=== PATIENT | female | born 1945 | race Two or more races ===

== ENCOUNTER 2017-01-04 09:34 | Outpatient (CLI) | payer MEDICARE ==
[~2017-01-04 09:34] MED LIST: ALIGN4 M1 PO; CELEBREX200 MG ORAL; IBUPROFEN200 MG ORAL; LINZESS145 MCG PO; PREVACID30 MG ORAL; muscle relaxant PO
[2017-01-04 12:43] LABS: BASOPHILS % (AUTO) 1.1 % (0.0-2.0); EOSINOPHILS % (AUTO) 0.2 % (0.0-3.0); LYMPHOCYTES % (AUTO) 19.6 % (20.0-45.0); MEAN CORPUSCULAR HEMOGLOBIN 29.9 PG (27.0-31.0); MEAN CORPUSCULAR HGB CONC 33.5 G/DL (32.0-36.0); MEAN CORPUSCULAR VOLUME 89 FL (80-99); MEAN PLATELET VOLUME 6.6 FL (6.5-10.1); NEUTROPHILS % (AUTO) 69.1 % (45.0-75.0); PLATELET COUNT 241 K/UL (150-450); RED BLOOD COUNT 4.71 M/UL (4.20-5.40); RED CELL DISTRIBUTION WIDTH 11.7 % (11.6-14.8); WHITE BLOOD COUNT 5.9 K/UL (4.8-10.8)
[2017-01-04 12:44] LABS: ALANINE AMINOTRANSFERASE 16 U/L (3-33); ALBUMIN/GLOBULIN RATIO 1.4 (1.0-2.7); AMYLASE 31 U/L (10-110); ANION GAP 15 (5-15); ASPARTATE AMINO TRANSFERASE 23 U/L (5-40); CALCIUM 9.3 mg/dL (8.6-10.2); CARBON DIOXIDE 25 mEQ/L (20-30); CHLORIDE 94 mEQ/L (98-107); CREATININE 0.8 mg/dL (0.5-0.9); HEMOLYSIS 13; LIPASE 21 U/L (< 60); POTASSIUM 4.1 mEQ/L (3.4-4.9); SODIUM 134 mEQ/L (135-145); TOTAL PROTEIN 7.1 g/dL (6.6-8.7)
--- NOTE | 2017-01-04 17:59 | GI Progress Note ---
Assessment/Plan Problems: (1) Abdominal bloating ICD Codes: R14.0 - Abdominal distension (gaseous) SNOMED: 124650007 (2) GERD (gastroesophageal reflux disease) ICD Codes: K21.9 - GERD (gastroesophageal reflux disease) SNOMED: 984749215 (3) Constipation ICD Codes: K59.00 - Constipation SNOMED: 10907282 Status: stable Status Narrative Seen with Dr. Traore. Assessment/Plan ordered BT @ [facility] lab draws: CBC, CMP, amylase/lipase, thyroid panel will consider Amitiza vs trulance on next visit RTC after BT repeat colonoscopy x 5 years Subjective Subjective LUQ abdominal pain constipation, linzess does not work weight increase abdominal gas s/p EGD in 2014, next scheduled for 2019 Objective T 98.7 BP 134/73 P 63 96 RA Laboratory Tests Test 01/04/17 11:00 White Blood Count 5.9 K/UL (4.8-10.8) Red Blood Count 4.71 M/UL (4.20-5.40) Hemoglobin 14.1 G/DL (12.0-16.0) Hematocrit 42.1 % (37.0-47.0) Mean Corpuscular Volume 89 FL (80-99) Mean Corpuscular Hemoglobin 29.9 PG (27.0-31.0) Mean Corpuscular Hemoglobin Concent 33.5 G/DL (32.0-36.0) Red Cell Distribution Width 11.7 % (11.6-14.8) Platelet Count 241 K/UL (150-450) Mean Platelet Volume 6.6 FL (6.5-10.1) Neutrophils (%) (Auto) 69.1 % (45.0-75.0) Lymphocytes (%) (Auto) 19.6 % (20.0-45.0) L Monocytes (%) (Auto) 10.0 % (1.0-10.0) Eosinophils (%) (Auto) 0.2 % (0.0-3.0) Basophils (%) (Auto) 1.1 % (0.0-2.0) Sodium Level 134 mEQ/L (135-145) L Potassium Level 4.1 mEQ/L (3.4-4.9) Chloride Level 94 mEQ/L (98-107) L Carbon Dioxide Level 25 mEQ/L (20-30) Anion Gap 15 (5-15) Blood Urea Nitrogen 11 mg/dL (7-23) Creatinine 0.8 mg/dL (0.5-0.9) Estimat Glomerular Filtration Rate mL/min (>60) Glucose Level 107 mg/dL (74-106) H Calcium Level 9.3 mg/dL (8.6-10.2) Total Bilirubin 0.4 mg/dL (0.0-1.2) Aspartate Amino Transf (AST/SGOT) 23 U/L (5-40) Alanine Aminotransferase (ALT/SGPT) 16 U/L (3-33) Alkaline Phosphatase 57 U/L (35-104) Total Protein 7.1 g/dL (6.6-8.7) Albumin 4.2 g/dL (3.5-5.2) Globulin 2.9 g/dL Albumin/Globulin Ratio 1.4 (1.0-2.7) Amylase Level 31 U/L (10-110) Lipase 21 U/L (< 60) Thyroid Stimulating Hormone (TSH) 1.760 uIU/mL (0.300-4.500) Free Thyroxine 1.31 ng/dL (0.86-1.85) Free Triiodothyronine Pending Total Triiodothyronine 1.02 ng/mL (0.80-2.00) Triiodothyronine (T3) Uptake Pending General Appearance: no apparent distress, alert Cardiovascular: normal rate Respiratory/Chest: normal breath sounds, no respiratory distress Abdominal Exam: normal bowel sounds, non tender, soft Extremities: normal range of motion Divya Redmond N.P. Jan 04, 2017 17:59
== END 2017-01-04 10:15 | disposition home or self-care (01) ==
LOC: PAN 09:34
DX: K21.9 Gastro-esophageal reflux disease without esophagitis (principal); K59.00 Constipation, unspecified; R14.0 Abdominal distension (gaseous)
CPT/HCPCS: 36415; 80053; 82150; 83690; 84439; 84443; 84480; 84481; 85025; G0463; 99211

== ENCOUNTER 2018-01-24 09:16 | Outpatient (CLI) | payer MEDICARE ==
[2018-01-24 09:59] VITALS: BP 125/63
--- NOTE | 2018-01-24 10:06 | GI Progress Note ---
Assessment/Plan Problems: (1) GERD (gastroesophageal reflux disease) ICD Codes: K21.9 - GERD (gastroesophageal reflux disease) SNOMED: 269728810 (2) Abdominal bloating ICD Codes: R14.0 - Abdominal distension (gaseous) SNOMED: 375011407 (3) Constipation ICD Codes: K59.00 - Constipation SNOMED: 95098413 (4) Internal hemorrhoids ICD Codes: K64.8 - Internal hemorrhoids SNOMED: 40959883 Status: stable Status Narrative Seen with Dr. Traore. Assessment/Plan ordered abdominal U/S Cont Dexilant 60mg Trial Trulance RTC after imaging study The patient was seen and examined at bedside and all new and available data was reviewed in the patients chart. I agree with the above findings, impression and plan. (Patient seen earlier today. Signature stamp does not reflect patient encounter time.). - Elias Traore MD Subjective Subjective Abdominal Pain >> LUQ/LLQ GERD Digestion problems Objective Last 24 Hour Vital Signs Date Time Temp Pulse Resp B/P (MAP) Pulse Ox O2 Delivery O2 Flow Rate FiO2 01/24/18 09:59 98.0 58 125/63 97 98.0 General Appearance: WD/WN, no apparent distress, alert Cardiovascular: normal rate Respiratory/Chest: normal breath sounds, no respiratory distress Abdominal Exam: normal bowel sounds, non tender, soft Extremities: normal range of motion, non-tender Estuardo Redmond NP Jan 24, 2018 10:06
== END 2018-01-24 09:48 | disposition home or self-care (01) ==
LOC: PAN 09:16
DX: K21.9 Gastro-esophageal reflux disease without esophagitis (principal); R14.0 Abdominal distension (gaseous); K59.00 Constipation, unspecified; K64.8 Other hemorrhoids
CPT/HCPCS: 99212

== ENCOUNTER → 2018-03-01 | Outpatient (CLI) | payer MEDICARE, OTHER ==
--- NOTE | 2018-03-01 13:27 | Diagnostic Imaging Report ---
Indication: Abdominal pain Technique: A plantar grayscale and color Doppler imaging of the abdomen Comparison: None Findings: Imaged portions of the pancreatic head grossly unremarkable. The body and tail are not seen. Liver contour appears smooth. There is mild diffusely increased hepatic echogenicity. A subcentimeter anechoic well-circumscribed structure in the left hepatic lobe compatible with a simple cyst is noted. The liver is normal in size. Imaged hepatic veins are patent. The main portal vein is patent with normal direction of flow. A prominent junctional fold is noted within the gallbladder, normal anatomic variant. No appreciable gallstones or sludge. No gallbladder wall thickening or pericholecystic fluid. Sonographic Hooper sign reported as negative. No intrahepatic or extrahepatic biliary ductal dilatation. The common bile duct measures 4-5 mm. The right kidney measures 10.7 cm in length. The left kidney measures 10.8 cm in length. Both kidneys demonstrate normal echogenicity. Some punctate echogenic foci in the renal river bilaterally may represent vascular calcifications or prominent renal sinus fat. There is no hydronephrosis or sonographically appreciable renal stone bilaterally. The spleen is normal in size and appearance. Imaged portions of the abdominal aorta and iliac arteries are normal in outer. There is no ascites. IMPRESSION: Mildly increased hepatic echogenicity most commonly reflective of hepatic steatosis. Additional hepatocellular diseases should be excluded clinically. Subcentimeter anechoic simple appearing hepatic cyst. No cholelithiasis or sonographic evidence to suggest acute cholecystitis.
== END | disposition home or self-care (01) ==
LOC: ULS 09:42
DX: R10.9 Unspecified abdominal pain (principal)
CPT/HCPCS: 76700

== ENCOUNTER 2018-03-21 09:44 | Outpatient (CLI) | payer OTHER ==
[2018-03-21 10:05] VITALS: BP 131/64
[2018-03-21] MEDS ORDERED: MELATONIN3 MG ORAL (10:05)
[2018-03-21] MEDS ORDERED: GABAPENTIN300 MG ORAL (10:05)
[2018-03-21] MEDS ORDERED: NEXIUM40 MG ORAL (10:05)
[2018-03-21] MEDS ORDERED: NEXIUM40 M2 ORAL (10:05)
--- NOTE | 2018-03-21 10:20 | GI Progress Note ---
Assessment/Plan Problems: (1) Encounter for diagnostic endoscopy ICD Codes: Z01.818 - Encounter for other preprocedural examination SNOMED: 899949570, 336842005 (2) GERD (gastroesophageal reflux disease) ICD Codes: K21.9 - GERD (gastroesophageal reflux disease) SNOMED: 682523800 (3) Abdominal bloating ICD Codes: R14.0 - Abdominal distension (gaseous) SNOMED: 447854704 (4) Constipation ICD Codes: K59.00 - Constipation SNOMED: 71637454 Status: stable Status Narrative Discussed with Dr. Traore. Assessment/Plan FHx of Pancreatic CA abdominal pain weight loss does not want radiation for CA EUS to be scheduled pending prior authorization. - NPO @ MI day prior procedure explained. cont PPI rx miralax + amitiza The patient was seen and examined at bedside and all new and available data was reviewed in the patients chart. I agree with the above findings, impression and plan. (Patient seen earlier today. Signature stamp does not reflect patient encounter time.). - Elias Traore MD Subjective Gastrointestinal/Abdominal: Reports: abdominal pain Subjective GERD >> given dexilant 60mg, but not taking because of high co pay Constipation >> Trulance Dizziness Objective Last 24 Hour Vital Signs Date Time Temp Pulse Resp B/P (MAP) Pulse Ox O2 Delivery O2 Flow Rate FiO2 03/21/18 10:05 98.4 62 18 131/64 98 98.4 General Appearance: WD/WN, no apparent distress, alert Cardiovascular: normal rate Respiratory/Chest: normal breath sounds, no respiratory distress Abdominal Exam: normal bowel sounds, non tender, soft Extremities: normal range of motion, non-tender Estuardo Redmond [employer] Mar 21, 2018 10:20
== END 2018-03-21 10:14 | disposition home or self-care (01) ==
LOC: PAN 09:44
DX: Z01.818 Encounter for other preprocedural examination (principal); K21.9 Gastro-esophageal reflux disease without esophagitis; R14.0 Abdominal distension (gaseous); K59.00 Constipation, unspecified
CPT/HCPCS: 99212

== ENCOUNTER 2018-04-28 07:11 | Day surgery (SDC) | payer MEDICARE, OTHER ==
[2018-04-28] VITALS (8 sets, daily range): BP systolic 132–155; BP diastolic 59–89
[~2018-04-28] VITALS: Ht 165.1 cm; Wt 77.1 kg
--- NOTE | 2018-04-28 06:48 | Anethesia Preoperative Eval ---
Anesthesia Pre-op PMH/ROS General Date of Evaluation: Apr 28, 2018 Time of Evaluation: 06:45 Anesthesiologist: qasim ASA Score: ASA 3 Mallampati Score Class I : Soft palate, uvula, fauces, pillars visible Class II: Soft palate, uvula, fauces visible Class III: Soft palate, base of uvula visible Class IV: Only hard plate visible Mallampati Classification: Class II Surgeon: siomara Diagnosis: abdominal pain Surgical Procedure: eus w/fna Anesthesia History: none Social History: smoking - nonsmoker Family History: no anesthesia problems Allergies: Coded Allergies: SULFA (SULFONAMIDE ANTIBIOTICS) (Verified Allergy, Severe, 01/02/15) fever, shaking Medications: see eMAR Past Medical History Gastrointestinal/Genitourinary: Reports: GERD, other - esophagitis Hematology/Immune: Reports: other - breast cancer Anesthesia Pre-op Phys. Exam Physician Exam Last Vital Signs Date Time Temp Pulse Resp B/P (MAP) Pulse Ox O2 Delivery O2 Flow Rate FiO2 10/5/18 07:45 97 60 18 155/82 97 Room Air 97.0 Constitutional: NAD Neurologic: CN 2-12 intact Cardiovascular: RRR Respiratory: CTA Gastrointestinal: S/NT/ND Airway Exam Mallampati Score: Class II MO: limited Neck: flexible TMD: 2fb ROM: limited Anesthesia Pre-op A/P Studies Pre-op Studies: EKG - sinus bradycardia Risk Assessment & Plan Assessment: asa3 Plan: mac Status Change Before Surgery: No Pre-Antibiotics Drug: Ana Dorado MD Apr 28, 2018 06:48
[~2018-04-28 07:11] MED LIST changes: +Atropine Inj 1mg/10ml Syr IV PRN; +DiphenhydrAMINE 50mg/ml Inj IVP PRN; +GABAPENTIN300 MG ORAL; +MELATONIN3 MG ORAL; +Midazolam 2mg/2ml Inj IVP PRN; +NEXIUM40 M2 ORAL; +NEXIUM40 MG ORAL; +fentaNYL 100 mcg/2 mL IV PRN
--- NOTE | 2018-04-28 08:51 | Short Stay Surgery H&P ---
History of Present Illness History of Present Illness Chief Complaint see recent office note HPI Duglas Moore is a 72 year old female who was admitted on for Abdominal Pain Patient History Allergies: Coded Allergies: SULFA (SULFONAMIDE ANTIBIOTICS) (Verified Allergy, Severe, 01/02/15) fever, shaking Medication History Scheduled Esomeprazole Magnesium (Nexium), 40 MG ORAL DAILY, (Reported) Esomeprazole Magnesium (Nexium), 40 MG ORAL PRN, (Reported) Gabapentin* (Gabapentin*), 300 MG ORAL BEDTIME, (Reported) Ibuprofen (Ibuprofen*), 800 MG ORAL Q12HR, (Reported) Scheduled PRN Melatonin (Melatonin), Unknown Dose ORAL BEDTIME PRN for Insomnia, (Reported) Physical Exam Vital Signs Last Vital Signs Date Time Temp Pulse Resp B/P (MAP) Pulse Ox O2 Delivery O2 Flow Rate FiO2 04/28/18 07:45 97 60 18 155/82 97 Room Air 97.0 Plan Attestation Are the patient's medical conditions optimized for surgery? Elias Traore MD Apr 28, 2018 08:51
--- NOTE | 2018-04-28 08:51 | Pre-Procedure Note/Attestation ---
Pre-Procedure Note/Attestation Complete Prior to Procedure Planned Procedure: not applicable Procedure Narrative: eus Indications for Procedure Pre-Operative Diagnosis: wt loss Attestation I attest that I discussed the nature of the procedure; its benefits; risks and complications; and alternatives (and the risks and benefits of such alternatives ), prior to the procedure, with the patient (or the patient's legal inside sales account representative). I attest that, if there was a reasonable possibility of needing a blood transfusion, the patient (or the patient's legal inside sales account representative) was given the [facility] of Health Services standardized written summary, pursuant to the [place] Blood Safety Act ([place] Health and Safety Code # 1645, as amended). I attest that I re-evaluated the patient just prior to the surgery and that there has been no change in the patient's H&P, except as documented below: Elias Traore MD Apr 28, 2018 08:51
[2018-04-28] MEDS ORDERED: Lidocaine 1% MPF 10mg/ml 5ml ONE (09:00)
[2018-04-28] MEDS ORDERED: Propofol 200mg/20ml IV ONE (09:00)
[2018-04-28] MEDS ORDERED: Heplock Flush 100 units/ml 3 ml syr ONE (09:04)
--- NOTE | 2018-04-28 09:30 | Endoscopy Procedure Note ---
Endoscopy Procedure Note General Indication for Procedure: weight loss Procedures Performed: other - EUS Operative Findings/Diagnosis: gallstones Specimen: none Pt Tolerated Procedure Well: Yes Estimated Blood Loss: none Anesthesia Anesthesiologist: kelvin Anesthesia: MAC Inserted Devices Implant(s) used?: No GI Core Measures 50 yrs or older w/o bx or poly: Not Applicable 10yrs. F/U not recommended: Not Applicable Elias Traore MD Apr 28, 2018 09:30
--- NOTE | 2018-04-28 09:50 | Immediate Post-Op Evaluation ---
Immediate Post-Op Evalulation Immediate Post-Op Evalulation Procedure: eus Date of Evaluation: Apr 28, 2018 Time of Evaluation: 09:47 IV Fluids: 200ml 0.9ns Blood Products: none Estimated Blood Loss: negligible Blood Pressure Systolic: 139 Blood Pressure Diastolic: 64 Pulse Rate: 59 Respiratory Rate: 18 O2 Sat by Pulse Oximetry: 100 Temperature (Fahrenheit): 97.7 Pain Score (1-10): 0 Nausea: No Vomiting: No Complications none Patient Status: awake, reacts, patent Drug: Ana Dorado MD Apr 28, 2018 09:50
--- NOTE | 2018-04-28 09:52 | 48 Hour Post Anesthesia Eval ---
Post Anesthesia Evaluation Procedure: eus Date of Evaluation: Apr 28, 2018 Time of Evaluation: 09:49 Blood Pressure Systolic: 135 0: 66 Pulse Rate: 60 Respiratory Rate: 18 Temperature (Fahrenheit): 97.7 O2 Sat by Pulse Oximetry: 99 Airway: patent Nausea: No Vomiting: No Pain Intensity: 0 Hydration Status: adequate Cardiopulmonary Status: stable Mental Status/LOC: patient returned to baseline Post-Anesthesia Complications: none Follow-up care needed: N/A Ana Isidro MD Apr 28, 2018 09:52
--- NOTE | 2018-04-28 16:00 | Procedure Note ---
DATE OF PROCEDURE: 04/28/2018 SURGEON: Elias Traore M.D. ANESTHESIOLOGIST: Dr. Bryant PROCEDURE: Endoscopic ultrasound. INDICATION: Weight loss, rule out pancreatic malignancy given family history of pancreatic cancer. The procedure, risks, benefits, and possible consequences, including hemorrhage, aspiration, perforation and infection, and alternative treatments, were explained to the patient/legal guardian by Dr. Elias Traore and the patient/legal guardian understood and accepted these risks. DESCRIPTION OF PROCEDURE: After informed consent was obtained and the patient was adequately sedated, Olympus EUS scope was advanced from mouth into the second portion of duodenum and pancreatic parenchyma was carefully examined through the gastroduodenal mucosa. Starting scanning at GE junction, we saw the left adrenal gland without any obvious adenoma. Celiac axis area was examined. There was no evidence of obvious celiac axis lymphadenopathy. Pancreatic parenchyma grossly within normal limit. In the body and tail, there was no evidence of any pancreatic duct dilatation. Then, the scope was advanced into the antrum, duodenal bulb, second portion of duodenum where the pancreatic head and gallbladder and liver were examined. Gallbladder showed evidence of about a little bit larger than 1 cm stone in the gallbladder. No gallbladder wall thickening. No pericholecystic fluid. Pancreatic head grossly within normal limit. Ampulla was seen. Both pancreatic duct and common bile duct was examined, none of them were dilated. The common bile duct measured roughly in the maximum diameter to about 4 mm. The patient tolerated procedure very well without any complication. SUMMARY OF FINDINGS: 1. 1 cm stone in the gallbladder, otherwise normal upper EUS examination. RECOMMENDATIONS: 1. Surgical evaluation for gallstones if the patient has signs and symptoms of gallstone disease, which at this time . 2. The patient to follow up in the office for further workup of her weight loss. I want to thank, Dr. Thang Pal, for this kind referral. Elias Traore M.D. DR: Soumya JOB#: [id number] CC: Thang Pal M.D.; Fax#: [phone]
== END 2018-04-28 10:30 | disposition home or self-care (01) ==
LOC: GAS 07:11
DX: R63.4 Abnormal weight loss (principal); K80.20 Calculus of gallbladder without cholecystitis without obstruction; K21.9 Gastro-esophageal reflux disease without esophagitis; Z85.3 Personal history of malignant neoplasm of breast; Z80.0 Family history of malignant neoplasm of digestive organs; Z88.2 Allergy status to sulfonamides
CPT/HCPCS: 43237; 93005; J2704; 94003; 94150

== ENCOUNTER 2018-05-15 14:16 | Outpatient (CLI) | payer MEDICARE ==
[~2018-05-15 14:16] MED LIST changes: -Atropine Inj 1mg/10ml Syr IV PRN; -DiphenhydrAMINE 50mg/ml Inj IVP PRN; -Midazolam 2mg/2ml Inj IVP PRN; -fentaNYL 100 mcg/2 mL IV PRN
[2018-05-15 14:25] VITALS: BP 133/64
[2018-05-15] MEDS ORDERED: TRULANCE PO (14:54)
--- NOTE | 2018-05-15 15:33 | GI Progress Note ---
Assessment/Plan Problems: (1) Encounter for diagnostic endoscopy ICD Codes: Z01.818 - Encounter for other preprocedural examination SNOMED: 489493057, 002939529 (2) Constipation ICD Codes: K59.00 - Constipation SNOMED: 70190282 (3) Abdominal bloating ICD Codes: R14.0 - Abdominal distension (gaseous) SNOMED: 518396624 (4) GERD (gastroesophageal reflux disease) ICD Codes: K21.9 - GERD (gastroesophageal reflux disease) SNOMED: 310160314 Status: stable Status Narrative Discussed with Dr. Troare. Assessment/Plan SUMMARY OF FINDINGS reviewed with patient: 1. 1 cm stone in the gallbladder, otherwise normal upper EUS examination. RECOMMENDATIONS: Surgical evaluation for gallstones if the patient has signs and symptoms of gallstone disease. cont dexilant RTC x3 months for routine follow up/management The patient was seen and examined at bedside and all new and available data was reviewed in the patients chart. I agree with the above findings, impression and plan. (Patient seen earlier today. Signature stamp does not reflect patient encounter time.). - Elias Traore MD Subjective Subjective GERD, taking dexilant had chronic constipation, but now resolved with diet and lifestyle changes Objective T 98.4 BP 133/64 P 73 98 RA General Appearance: WD/WN, no apparent distress, alert Cardiovascular: normal rate Respiratory/Chest: normal breath sounds, no respiratory distress Abdominal Exam: normal bowel sounds, non tender, soft Extremities: normal range of motion, non-tender Estuardo Redmond [employer] QUALITY CONSULTANT May 15, 2018 15:33
== END 2018-05-15 14:46 | disposition home or self-care (01) ==
LOC: PAN 14:16
DX: Z01.818 Encounter for other preprocedural examination (principal); K59.00 Constipation, unspecified; R14.0 Abdominal distension (gaseous); K21.9 Gastro-esophageal reflux disease without esophagitis; K80.20 Calculus of gallbladder without cholecystitis without obstruction
CPT/HCPCS: 99212

== ENCOUNTER 2019-01-30 09:36 | Outpatient (CLI) | payer MEDICARE ==
[~2019-01-30 09:36] MED LIST changes: +TRULANCE PO
--- NOTE | 2019-01-30 10:09 | General Progress Note ---
Assessment/Plan Problem List: (1) RLQ abdominal pain ICD Codes: R10.31 - Right lower quadrant pain SNOMED: 836663334 (2) GERD (gastroesophageal reflux disease) ICD Codes: K21.9 - GERD (gastroesophageal reflux disease) SNOMED: 624017297 (3) Abdominal bloating ICD Codes: R14.0 - Abdominal distension (gaseous) SNOMED: 459462899 (4) Constipation ICD Codes: K59.00 - Constipation SNOMED: 60739982 (5) Internal hemorrhoids ICD Codes: K64.8 - Internal hemorrhoids SNOMED: 65758703 (6) Breast cancer ICD Codes: C50.919 - Breast cancer SNOMED: 411388629 Assessment/Plan: patient to see her [employer] for pelvic us>> if neg plan CT of abd and pelvic last colon in 2014 EUS>>> ? gallstones Subjective ROS Limited/Unobtainable: Yes Allergies: Coded Allergies: SULFA (SULFONAMIDE ANTIBIOTICS) (Verified Allergy, Severe, 01/02/15) fever, shaking Objective General Appearance: alert EENT: normal ENT inspection Neck: supple Cardiovascular: normal rate Respiratory/Chest: lungs clear Abdomen: soft, tender Extremities: non-tender Elias Traore MD Jan 30, 2019 10:09
== END 2019-01-30 11:36 | disposition home or self-care (01) ==
LOC: PAN 09:36
DX: R10.31 Right lower quadrant pain (principal); K21.9 Gastro-esophageal reflux disease without esophagitis; R14.0 Abdominal distension (gaseous); K59.00 Constipation, unspecified; K64.8 Other hemorrhoids; C50.919 Malignant neoplasm of unspecified site of unspecified female breast; Z88.2 Allergy status to sulfonamides

== ENCOUNTER → 2019-03-02 | Outpatient (CLI) | payer MEDICARE, OTHER ==
[2019-03-02 14:05] LABS: BLOOD UREA NITROGEN 10 mg/dL (7-18); CREATININE 0.7 MG/DL (0.55-1.30)
--- NOTE | 2019-03-02 15:49 | Diagnostic Imaging Report ---
Indication: Abdominal pain Technique: CT of the abdomen and pelvis utilizing automated exposure control with intravenous contrast. Venous scanning performed. Axial, sagittal and coronal reformats presented. Note the patient declined oral contrast. CT dose: Total DLP 861.36 mGycm; CTDI vol 16.58 mGy Comparison: No prior CT of the abdomen available for comparison. Correlation made to abdominal ultrasound 03/01/2018 Findings: Very mild dependent atelectatic changes noted in the bilateral lower lobes. Heart size within normal limits. No pericardial effusion. There is asymmetry of the breast tissue with deficiency of the left breast tissue raising question for prior left sided breast surgery. Hepatic contour is smooth. Few well-circumscribed subcentimeter hypodensities noted in the liver, too small to fully characterize but most likely representing simple cysts. Hepatic veins and portal veins are patent. Gallbladder is unremarkable, without CT evident gallstones or pericholecystic inflammatory changes. No biliary ductal dilatation. Spleen, adrenal glands and pancreas are unremarkable in appearance. Likely subcentimeter simple cysts in the right kidney. Otherwise kidneys enhance symmetrically. No urinary tract stone or hydronephrosis. No perinephric stranding. Bladder is unremarkable in appearance. Uterus mildly atrophic. There is a approximately 14 mm low-attenuation lesion in the left ovary which may represent a cyst however correlation with pelvic ultrasound is recommended given patient's age. There is no free intraperitoneal air or fluid. Apparent mild thickening of the wall of the stomach likely related to underdistention. Consider follow-up endoscopy. There is no evidence of small bowel obstruction. No inflammatory stranding is noted within the mesentery. The appendix is normal in caliber. No periappendiceal inflammatory changes. Colon is normal in caliber. No pericolonic inflammatory changes. There is a tiny fat-containing umbilical hernia. Abdominal aorta is normal in caliber. Mild degenerative changes noted in the spine. Degenerative changes also noted in the hips. No acute osseous abnormality is identified. Subcentimeter likely bone island in the right femur. Some enthesopathic changes noted in the pelvic bones. No suspicious bony lesion. IMPRESSION: * Cortical mild thickening of the wall of the stomach, possibly related to underdistention. Consider follow-up endoscopy. * Findings suggesting prior left breast surgery. Correlation with surgical history is recommended. * 14 mm low-attenuation lesion in the left ovary which may represent a cyst. Given patient's age however correlation with pelvic ultrasound is recommended. * Subcentimeter likely simple hepatic and renal cysts. Additional incidental findings as above. The CT scanner at [facility] is accredited by the [employer] and the scans are performed using protocols designed to limit radiation exposure to as low as reasonably achievable to attain images of sufficient resolution adequate for diagnostic evaluation.
== END | disposition home or self-care (01) ==
LOC: CAT 12:58
DX: R10.9 Unspecified abdominal pain (principal); R63.4 Abnormal weight loss; K80.80 Other cholelithiasis without obstruction
CPT/HCPCS: 36415; 74177; 82565; 84520; Q9967

== ENCOUNTER 2019-04-03 09:19 | Outpatient (CLI) | payer MEDICARE ==
--- NOTE | 2019-04-03 10:44 | General Progress Note ---
Assessment/Plan Problem List: (1) GERD (gastroesophageal reflux disease) ICD Codes: K21.9 - GERD (gastroesophageal reflux disease) SNOMED: 287597144 (2) Breast cancer ICD Codes: C50.919 - Breast cancer SNOMED: 041088872 (3) Abdominal bloating ICD Codes: R14.0 - Abdominal distension (gaseous) SNOMED: 002097997 (4) RLQ abdominal pain ICD Codes: R10.31 - Right lower quadrant pain SNOMED: 419744863 (5) Constipation ICD Codes: K59.00 - Constipation SNOMED: 24703020 (6) Internal hemorrhoids ICD Codes: K64.8 - Internal hemorrhoids SNOMED: 31636261 Assessment/Plan: CT reviewed needs repeat EGD pending authorization Subjective ROS Limited/Unobtainable: Yes Allergies: Coded Allergies: SULFA (SULFONAMIDE ANTIBIOTICS) (Verified Allergy, Severe, 01/02/15) fever, shaking Objective General Appearance: alert EENT: normal ENT inspection Neck: supple Cardiovascular: normal rate Respiratory/Chest: lungs clear Abdomen: normal bowel sounds, non tender, soft Extremities: non-tender Elias Traore MD Apr 03, 2019 10:44
== END 2019-04-03 11:19 | disposition home or self-care (01) ==
LOC: PAN 09:19
DX: K21.9 Gastro-esophageal reflux disease without esophagitis (principal); C50.919 Malignant neoplasm of unspecified site of unspecified female breast; R14.0 Abdominal distension (gaseous); R10.31 Right lower quadrant pain; K59.00 Constipation, unspecified; K64.8 Other hemorrhoids; Z88.2 Allergy status to sulfonamides

== ENCOUNTER 2019-04-20 08:24 | Day surgery (SDC) | payer OTHER ==
[~2019-04-20] VITALS: Ht 165.1 cm; Wt 75.7 kg
[2019-04-20] VITALS (9 sets, daily range): BP systolic 121–154; BP diastolic 73–88
[~2019-04-20 08:24] MED LIST changes: +LR 1000ml 1,000 ML IVLG SCH
--- NOTE | 2019-04-20 09:13 | Pre-Procedure Note/Attestation ---
Pre-Procedure Note/Attestation Complete Prior to Procedure Planned Procedure: not applicable Procedure Narrative: egd Indications for Procedure Pre-Operative Diagnosis: GERD Attestation I attest that I discussed the nature of the procedure; its benefits; risks and complications; and alternatives (and the risks and benefits of such alternatives ), prior to the procedure, with the patient (or the patient's legal automobile sales representative). I attest that, if there was a reasonable possibility of needing a blood transfusion, the patient (or the patient's legal automobile sales representative) was given the [facility] of [facility] Services standardized written summary, pursuant to the [place] Blood Safety Act ([place] Health and Safety Code # 1645, as amended). I attest that I re-evaluated the patient just prior to the surgery and that there has been no change in the patient's H&P, except as documented below: Elias Traore MD Apr 20, 2019 09:13
--- NOTE | 2019-04-20 09:14 | Short Stay Surgery H&P ---
History of Present Illness History of Present Illness Chief Complaint see recent office note HPI Analiliah Era Moore is a 73 year old female who was admitted on for Right Lower Quadrant Pain Patient History Allergies: Coded Allergies: SULFA (SULFONAMIDE ANTIBIOTICS) (Verified Allergy, Severe, 01/02/15) fever, shaking Medication History Scheduled Esomeprazole Magnesium (Nexium), 40 MG ORAL PRN, (Reported) Gabapentin* (Gabapentin*), 300 MG ORAL BEDTIME, (Reported) Ibuprofen (Ibuprofen*), 800 MG ORAL Q12HR, (Reported) [trulance], 3 MG PO DAILY, (Reported) Scheduled PRN Melatonin (Melatonin), Unknown Dose ORAL BEDTIME PRN for Insomnia, (Reported) Plan Attestation Are the patient's medical conditions optimized for surgery? Elias Traore MD Apr 20, 2019 09:14
--- NOTE | 2019-04-20 09:39 | Anethesia Preoperative Eval ---
Anesthesia Pre-op PMH/ROS General Date of Evaluation: Apr 20, 2019 Time of Evaluation: 10:01 Anesthesiologist: Lisa Wyatt CRNA ASA Score: ASA 2 Mallampati Score Class I : Soft palate, uvula, fauces, pillars visible Class II: Soft palate, uvula, fauces visible Class III: Soft palate, base of uvula visible Class IV: Only hard plate visible Mallampati Classification: Class II Surgeon: Eugenie Diagnosis: RIGHT lower quadrant pain Surgical Procedure: EGD Family History: no anesthesia problems Allergies: Coded Allergies: SULFA (SULFONAMIDE ANTIBIOTICS) (Verified Allergy, Severe, 01/02/15) fever, shaking Medications: see eMAR Patient NPO?: Yes NPO Date: Apr 20, 2019 NPO Time: 00:00 Past Medical History Cardiovascular: Denies: HTN, CAD, CA, valve dz, arrhythmia, other Pulmonary: Denies: asthma, COPD, TESFAYE, other Gastrointestinal/Genitourinary: Reports: GERD; Denies: CRI, ESRD, other Neurologic/Psychiatric: Denies: dementia, CVA, depression/anxiety, TIA, other Endocrine: Denies: DM, hypothyroidism, steroids, other HEENT: Denies: cataract (L), cataract (R), glaucoma, HOOPA (L), HOOPA (R), other Hematology/Immune: Denies: anemia, DVT, bleeding disorder, other Musculoskeletal/Integumentary: Reports: OA, other - lumpectomy & radiation for breast CA; chronic pain from lower back issues; Denies: RA, DJD, DDD, edema PMH Narrative: as noted above PSxH Narrative: lumpectomy Anesthesia Pre-op Phys. Exam Physician Exam Last 24 Hour Vital Signs Date Time Temp Pulse Resp B/P (MAP) Pulse Ox O2 Delivery O2 Flow Rate FiO2 04/20/19 09:53 Room Air 04/20/19 09:45 97.1 52 18 130/76 96 Room Air Constitutional: NAD Neurologic: other - alert & oriented Cardiovascular: RRR Respiratory: CTA Gastrointestinal: S/NT/ND Airway Exam Mallampati Score: Class II Neck: FROM TMD: <3 FB ROM: full Teeth: intact Dentures: no upper, no lower Anesthesia Pre-op A/P Risk Assessment & Plan Assessment: ASA 2, ok to proceed Plan: MAC Status Change Before Surgery: No Pre-Antibiotics Given Within 1 Hr of Incision: No Lisa Wyatt CRNA Apr 20, 2019 09:39
[2019-04-20] MEDS ORDERED: DEXILANT30 MG ORAL (09:58)
[2019-04-20] MEDS ORDERED: LR 1000ml ONE (10:00)
[2019-04-20] MEDS ORDERED: Lidocaine 1% MPF 10mg/ml 5ml ONE (10:00)
[2019-04-20] MEDS ORDERED: Propofol 200mg/20ml IV ONE (10:00)
--- NOTE | 2019-04-20 10:33 | Immediate Post-Op Evaluation ---
Immediate Post-Op Evalulation Immediate Post-Op Evalulation Procedure: EGD with biopsies Date of Evaluation: Apr 20, 2019 Time of Evaluation: 10:32 IV Fluids: LR 200 ml Blood Pressure Systolic: 121 Blood Pressure Diastolic: 73 Pulse Rate: 53 Respiratory Rate: 16 O2 Sat by Pulse Oximetry: 100 Temperature (Fahrenheit): 97.8 Pain Score (1-10): 0 Nausea: No Vomiting: No Complications none Patient Status: awake, patent Hydration Status: adequate Given Within 1 Hr of Incision: Lisa Templeton CRNA Apr 20, 2019 10:33
--- NOTE | 2019-04-20 12:09 | 48 Hour Post Anesthesia Eval ---
Post Anesthesia Evaluation Procedure: EGD with biopsies Date of Evaluation: Apr 20, 2019 Time of Evaluation: 12:07 Blood Pressure Systolic: 154 0: 88 Pulse Rate: 55 Respiratory Rate: 17 Temperature (Fahrenheit): 98 O2 Sat by Pulse Oximetry: 99 Airway: patent Nausea: No Vomiting: No Pain Intensity: 0 Hydration Status: adequate Cardiopulmonary Status: stable Follow-up Care/Observations: per GI Post-Anesthesia Complications: none Follow-up care needed: N/A Lisa Wyatt CRNA Apr 20, 2019 12:09
--- NOTE | 2019-04-20 15:45 | Procedure Note ---
DATE OF PROCEDURE: 04/20/2019 SURGEON: Elias Traore M.D. PROCEDURE: Upper endoscopy with biopsy. ANESTHESIA: Per Lisa RUIZ. INSTRUMENT: Olympus adult flexible upper endoscope. INDICATION: Chronic GERD, abdominal pain. REASON FOR PROCEDURE: The procedure, risks, benefits, and possible consequences, including hemorrhage, aspiration, perforation and infection, and alternative treatments, were explained to the patient/legal guardian by Dr. Elias Traore and the patient/legal guardian understood and accepted these risks. DESCRIPTION OF PROCEDURE: After informed consent was obtained and the patient was adequately sedated, Olympus upper endoscope was advanced from mouth into the second portion of duodenum and retroflexion was performed in the stomach. GE junction was found to be about 36 to 37 cm from the incisors. 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 Biopsy from distal esophagus was obtained. In the stomach, there was diffuse gastritis. Random biopsy from antrum and body was obtained to rule out H. pylori infection. The patient tolerated procedure very well without any complication. SUMMARY OF FINDINGS: 1. 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 2. Gastritis, status post biopsy. RECOMMENDATIONS: Follow up biopsy results and treat accordingly. Elias Traore M.D. DR: LUIS A JOB#: [id number] CC:
== END 2019-04-20 11:35 | disposition home or self-care (01) ==
LOC: GAS 08:24
DX: K21.9 Gastro-esophageal reflux disease without esophagitis (principal); R10.9 Unspecified abdominal pain; Z88.2 Allergy status to sulfonamides; Z85.3 Personal history of malignant neoplasm of breast; K29.50 Unspecified chronic gastritis without bleeding
CPT/HCPCS: 43239; J2704; 94003; 94150

== ENCOUNTER 2019-09-04 10:17 | Outpatient (CLI) | payer OTHER ==
[2019-09-04 10:17] VITALS: BP 136/69
[~2019-09-04 10:17] MED LIST changes: +DEXILANT30 MG ORAL; -LR 1000ml 1,000 ML IVLG SCH
--- NOTE | 2019-09-04 15:10 | General Progress Note ---
Assessment/Plan Problem List: (1) RLQ abdominal pain ICD Codes: R10.31 - Right lower quadrant pain SNOMED: 459523514 (2) Constipation ICD Codes: K59.00 - Constipation SNOMED: 87764637 (3) Internal hemorrhoids ICD Codes: K64.8 - Internal hemorrhoids SNOMED: 12569891 (4) GERD (gastroesophageal reflux disease) ICD Codes: K21.9 - GERD (gastroesophageal reflux disease) SNOMED: 083811638 (5) Breast cancer ICD Codes: C50.919 - Breast cancer SNOMED: 605410883 (6) Abdominal bloating ICD Codes: R14.0 - Abdominal distension (gaseous) SNOMED: 709778630 Assessment/Plan: cont ppi RTC prn Subjective ROS Limited/Unobtainable: Yes Allergies: Coded Allergies: SULFA (SULFONAMIDE ANTIBIOTICS) (Verified Allergy, Severe, 01/02/15) fever, shaking Objective Last 24 Hour Vital Signs Date Time Temp Pulse Resp B/P (MAP) Pulse Ox O2 Delivery O2 Flow Rate FiO2 09/04/19 10:17 98.2 74 16 136/69 (91) 96 General Appearance: alert EENT: normal ENT inspection Neck: supple Cardiovascular: normal rate Respiratory/Chest: decreased breath sounds Abdomen: normal bowel sounds, non tender, soft Extremities: non-tender Elias Traore MD Sep 04, 2019 15:10
== END 2019-09-04 12:52 | disposition home or self-care (01) ==
LOC: PAN 10:17
DX: R10.31 Right lower quadrant pain (principal); K59.00 Constipation, unspecified; K64.8 Other hemorrhoids; K21.9 Gastro-esophageal reflux disease without esophagitis; C50.919 Malignant neoplasm of unspecified site of unspecified female breast; R14.0 Abdominal distension (gaseous); Z88.2 Allergy status to sulfonamides
CPT/HCPCS: 99212